=== PATIENT | female | born 1960 | race Hispanic/Latino ===

== ENCOUNTER → 2019-01-15 | Outpatient (CLI) | payer OTHER ==
--- NOTE | 2019-01-15 13:47 | CT ---
EXAM DESCRIPTION: Abdomen/Pelvis w/Contrast: Computed Tomography. CLINICAL HISTORY: 58 years Female LLQ ABD PAIN COMPARISON: None. TECHNIQUE: Spiral-axial scans at 5 x 5 mm intervals through the abdomen and pelvis, after nonionic IV contrast without oral contrast. Coronal and sagittal 2 x 2 mm reconstructions. No delayed scans. No adverse reactions. Total Exam DLP: 751.15 mGy-cm. This exam was performed according to our departmental dose-optimization program which includes automated exposure control, adjustment of the mA and/or kV according to patient size and/or use of iterative reconstruction technique; to reduce radiation dose to as low as reasonably achievable (ALARA). FINDINGS: Lung bases and pleura: Minimal groundglass density in the posterior right infrahilar caval mediastinal recess. No definite mass. Liver, Stomach, Spleen, Adrenal Glands: Possible small gastric hiatal hernia. Solid organs are unremarkable. Pancreas, Gallbladder, Ducts: Gallbladder visualized. Suggestion of sludge or non radiodense stones in the gallbladder neck. Duct and pancreatitis negative. Kidneys and Ureters: Unremarkable. Mesentery: Negative. Aorta: Minimal atherosclerotic calcification including the ostium of the SMA. Small Bowel: Normal caliber with minimal gas and fluid. Terminal Ileum/Cecum: Fecalization and distention of the distal terminal ileum. Minimal distention of the cecum by fecal matter. Appendix not seen. Colon: Minimal fluid and fecal matter without distention proximally with mostly gas distally and decompensation. Marked redundancy of the sigmoid colon with no complications. Pelvic Organs: Calcification in the right adnexa above the urinary bladder and abutting the distal ileum. No free fluid. Anteverted uterus with minimal deviation to the left of midline. Ovaries not visualized. Spine and Bony Pelvis: Marked spondylosis L5-S1 with foraminal and canal narrowing. Hypertrophic superior lateral acetabulum bilateral with mild over coverage of the femoral heads and minimal superior lateral joint space narrowing. Abdominal Wall/Back Soft Tissues: Minimal diastases at the umbilicus not containing bowel. IMPRESSION: 1. No signs of inflammation free fluid or mass in the left lower quadrant. Sigmoid colon is markedly redundant but no complications. 2. Possible sludge or non-radiodense stones in the neck of the gallbladder with normal caliber of the common bile duct. 3. Minimal groundglass density in the subpleural medial right lower lobe unlikely to represent an acute process. Consider chest x-ray follow-up. 4. Calcification in the right adnexa could be related to mesentery, a lymph node, or right ovary with a specific right ovary not seen. 5. Marked spondylosis L5-S1 with significant foraminal and canal narrowing. Electronically signed by: Rigoberto Avila MD 01/15/2019 1:44 PM CDT
== END ==
LOC: CT 09:50
PROVIDERS: ATTEND General Practice
DX: R10.32 Left lower quadrant pain (principal); R10.2 Pelvic and perineal pain; M47.897 Other spondylosis, lumbosacral region